=== PATIENT | female | born 1995 | race African-American/Black ===

== ENCOUNTER 2021-04-15 07:09 | Outpatient (CLI) | payer OTHER, SELFPAY ==
--- NOTE | ~2021-04-15 | XR_ITS ---
XR chest 2V DATE: 04/15/2021 08:20 INDICATION: Dyspnea on exertion TECHNIQUE: PA and lateral views COMPARISON: None FINDINGS: Normal heart size. No hilar or mediastinal enlargement. No pulmonary infiltrate or consolid ation, pleural effusion or pulmonary vascular congestion or pneumothorax. There is thoracic and lumbar scoliosis. IMPRESSION: No active cardiopulmonary disease Scoliosis Reviewed, dictated and finalized at location A. 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
[2021-04-15 08:41] LABS: Basophils Percent Auto 0.5 % (0.2-1.2); Eosinophils Absolute Auto 0.3 K/mm3 (0-0.3); Eosinophils Percent Auto 3.1 % (0-4.4); Hematocrit 38.7 % (37.0-47.0); Hemoglobin 12.7 g/dL (12.0-15.0); Immature Granulocyte Absolute 0.01 K/mm3 (0.00-0.031); Immature Granulocyte Percent A 0.1 % (0-0.5); Lymphocytes Absolute Auto 2.17 K/mm3 (0.9-3.2); Lymphocytes Percent Auto 26.1 % (18.3-44.2); Mean Corpuscular HGB Conc 32.8 g/dl (32-36); Mean Corpuscular Hemoglobin 26.8 pg (26-34); Mean Corpuscular Volume 81.8 fl (80-100); Mean Platelet Volume 9.6 fl (7.4-10.4); Monocytes Absolute Auto 0.5 K/mm3 (0.1-0.6); Monocytes Percent Auto 5.9 % (2.6-8.5); Neutrophils Absolute Auto 5.4 K/mm3 (1.3-6.7); Neutrophils Percent Auto 64.3 % (45.5-73.1); Platelet Count Result 385 k/mm3 (150-375); Red Blood Count 4.73 M/mm3 (4.2-5.4); Red Cell Distribution Width 14.4 % (11.5-14.5); White Blood Count 8.3 K/mm3 (4.5-10.0)
[2021-04-15 08:57] LABS: Alanine Aminotransferase 13 U/L (4-35); Albumin Level 4.5 g/dL (3.5-5.1); Alkaline Phosphatase 96 U/L (38-126); Anion Gap 8 mmol/L (8-16); Aspartate Amino Transferase 23 U/L (14-36); Bilirubin,Total 0.4 mg/dL (0.2-1.3); Blood Urea Nitrogen 14 mg/dL (7-17); Calcium 9.3 mg/dL (8.4-10.2); Carbon Dioxide 27 mmol/L (22-30); Chloride 101 mmol/L (98-107); Cholesterol 192 mg/dL (0-200); Estimated Glomerular Filt Rate > 60; Glucose 97 mg/dL (65-110); HDL Direct 53 mg/dL; Potassium 4.4 mmol/L (3.4-5.0); Sodium 136 mmol/L (137-145); Triglycerides 69 mg/dL (<150)
[2021-04-15 09:07] LABS: Hemoglobin A1C 5.2 % (<5.7)
[2021-04-15 09:08] LABS: LDL Cholesterol Direct 109 mg/dL
== END 2021-04-15 07:10 | disposition home or self-care (01) ==
LOC: ANHIMG 07:15
PROVIDERS: PCP Family Medicine; Visit Provider Physician Assistant
DX: R06.00 Dyspnea, unspecified (principal); E66.9 Obesity, unspecified; M41.9 Scoliosis, unspecified
CPT/HCPCS: 36415; 71046; 80053; 80061; 83036; 84443; 85025

== ENCOUNTER 2021-07-28 15:28 | Outpatient (CLI) | payer OTHER, SELFPAY ==
--- NOTE | ~2021-07-28 | XR_ITS ---
EXAMINATION: XR scoliosis survey EXAM DATE: 07/28/2021 16:15 INDICATION: Thoracogenic Scoliosis, Thoracic Region TECHNIQUE: Frontal and lateral projections entire spine composite images, frontal and lateral projec tions cervical and thoracic spine, frontal and lateral projections lumbar sacral spine. Breast shield s used. There is no prior study for comparison. FINDINGS: There are 12 rib bearing thoracic vertebral bodies and 5 nonrib-bearing lumbar vertebral carleen dies. There is 27 degrees of dextroscoliosis measured between T6-T10. There is 20 degrees of levoscoliosis as measured between T11-L4. Minimal of any pelvic tilt, can't exclude that right leg is couple of millimeters longer than left. No hemipelvis vertebral bodies. Paraspinal soft tissue is unremarkable. IMPRESSION: Mild to moderate thoracolumbar scoliosis. Reviewed, dictated and finalized at location B. LE FINISHER
== END 2021-07-28 15:29 | disposition home or self-care (01) ==
LOC: ANHIMG 15:35
PROVIDERS: PCP Physician Assistant; Visit Provider Physician Assistant
DX: M41.34 Thoracogenic scoliosis, thoracic region (principal)
CPT/HCPCS: 72082

== ENCOUNTER 2024-01-09 12:29 | Emergency (ER) | payer BC, SELFPAY ==
[2024-01-09 12:40] VITALS: BP 121/81; PULSE 82; RESP 16; TEMP 36.9; O2SAT 100
--- NOTE | 2024-01-09 12:52 | ED.DENTAL ---
HPI - Dental/Oral General Chief complaint: Unspecified Stated complaint: Swollen Jaw Line Time Seen by Provider: 01/09/24 13:05 Mode of arrival: ambulatory Limitations: no limitations History of Present Illness HPI Narrative: 28-year-old female presents concern for a painful lump on her right throat. She reports she noticed it last night, got better this morning. She denies painful swallowing or difficulty swallowing. She reports it is tender to touch or when she moves in certain ways. She denies any fever, body aches, chills, sweats. Denies cold symptoms. Denies dental pain Related Data Allergies Allergy/AdvReac Type Severity Reaction Status Date / Time No Known Allergies Allergy Unverified 04/20/22 10:48 Review of Systems Review of Systems: CONSTITUTIONAL: Denies malaise, chills, sweats, or fever. EYES: Denies visual changes ENT: Denies rhinorrhea, congestion, sinus pain, otalgia or sore throat. Reports painful lump on her right-sided throat CARDIOVASCULAR: Denies chest pain, palpitations RESPIRATORY: Denies cough or dyspnea. SKIN: Denies rash or itching. MUSCULOSKELETAL: Denies myalgia. NEUROLOGIC: Denies numbness, weakness, or headache. All systems reviewed & are unremarkable except as noted in HPI and below PMFSH Comments At time of signature, agree with nursing past medical, surgical, social and family history. There is no relevant family history pertinent to the presenting complaint Exam Narrative: GENERAL: Well-appearing, well-nourished, and in no acute distress. HEAD: Normocephalic, atraumatic. EYES: PERRLA, sclera clear ENT: Nares clear, turbinates pink, no rhinorrhea or epistaxis. Mucous membranes moist. TM pearly de oliveira with sharp light reflex bilaterally; no tragal tenderness. Oropharynx without erythema or lesions. Tonsils not enlarged and without exudate. Approximately 3 cm x 2 cm palpable right submandibular gland, tender, slightly warm NECK: Supple. No lymphadenopathy. CHEST: No respiratory distress. Speaks in full sentences. HEART: Regular rate and rhythm. SKIN: Warm, dry, no visible rash. NEURO: Alert and oriented x3. PSYCH: Normal mood and affect Course Course Emergency Course: Patient is aware of diagnosis, understands and agrees to treatment plan. Anticipatory guidance given. Patient agrees to follow-up as directed and is aware of reasons to seek care at the emergency department. Portions of this record may have been created with voice recognition software Level of Care: Express Care Visit Vital Signs Vital signs: Vital Signs Temperature 98.5 F 01/09/24 12:40 Pulse Rate 82 01/09/24 12:40 Respiratory Rate 16 01/09/24 12:40 Blood Pressure 121/81 01/09/24 12:40 Pulse Oximetry 100 01/09/24 12:40 Oxygen Delivery Room Air 01/09/24 12:40 Temperature 98.5 F 01/09/24 12:40 Pulse Rate 82 01/09/24 12:40 Respiratory Rate 16 01/09/24 12:40 Blood Pressure 121/81 01/09/24 12:40 Pulse Oximetry 100 01/09/24 12:40 Oxygen Delivery Room Air 01/09/24 12:40 Reviewed. MDM - Dental/Oral MDM Narrative Medical decision making narrative: I evaluated this in the express care. History is obtained from patient who is an independent historian and physical exam was performed.? Available medical records were reviewed. ? Exam findings and relevant testing show no acute concerns or changes; patient is non-toxic appearing and is in no distress. Patients pain and complaint coupled with physical findings are consistant with dentalgia. There are no focal signs of space occupying lesions that are compromising to the airway; no dysphagia, odynophagia, dysphonia, or dyspnea. No uvular deviation or soft palate edema. Patient is non-toxic appearing. The floor of the mouth is soft with no signs of Bryan's Angina; no induration below mandible, no neck pain. Patient is without trismus or drooling and able to swallow secretions. Patient is felt appropriate for disc
[2024-01-09 13:04] LABS: EDSTREPNEGPOS1 Presumptive Negative
== END 2024-01-09 13:20 | disposition home or self-care (01) ==
PROVIDERS: Emergency Provider Nurse Practitioner; PCP Physician Assistant
DX: K11.20 Sialoadenitis, unspecified (principal)
CPT/HCPCS: 87081; 87880; 99213; G0463